=== PATIENT | female | born 1985 | race Hispanic/Latino ===

== ENCOUNTER 2019-06-12 22:44 | Emergency (ER) | payer OTHER, SELFPAY ==
[2019-06-12 22:50] VITALS: BP 142/77; PULSE 89; RESP 18; O2SAT 96
--- NOTE | 2019-06-12 23:01 | ED_ITS ---
HPI - GI Bleed General Chief complaint: GI Bleed Stated complaint: Extremely bright red stool Time Seen by Provider: 06/12/19 22:50 Source: patient Mode of arrival: Ambulatory Limitations: no limitations History of Present Illness HPI Narrative: Otherwise healthy 34-year-old female here for evaluation of 2 episodes of her red blood per rectum. She states that prior to these 2 episodes she has not had any GI issues. She is not having abdominal pain. No vomiting. Has had her gallbladder removed but no other abdominal surgeries. She states that head is not painful for her to go to the bathroom. No urinary symptoms. No vaginal bleeding. Back in 2016 she did have a colonoscopy which she reports was unremarkable. This is due to having chronic abdominal pain that time. She states that has since resolved. Has not done anything for her current symptoms prior to arrival. Related Data Home Medications Medication Instructions Recorded Confirmed levothyroxine [Synthroid] #0 01/04/16 Previous Rx's Medication Instructions Recorded cyclobenzaprine 5 mg PO Q8HP PRN #10 tab 01/04/16 ibuprofen 800 mg PO TIDP PRN #30 tab 01/04/16 Allergies Allergy/AdvReac Type Severity Reaction Status Date / Time DARVOCET Allergy Severe ANAPHYLAXIS Uncoded 05/20/17 12:31 From PERCOCET Allergy Severe ANAPHYLAXIS Uncoded 05/20/17 12:31 From VICODIN Allergy Severe ANAPHYLAXIS Uncoded 05/20/17 12:31 IODINE Allergy Severe IV LIP, Uncoded 05/20/17 12:31 EYE SWELLING, THROAT SWELLS AVOCADOS Allergy Unknown ANAPHYLAXIS Uncoded 05/20/17 12:31 COCONUT Allergy Unknown ANAPHYLAXIS Uncoded 05/20/17 12:31 CODEINE Allergy Unknown RASH Uncoded 05/20/17 12:31 TRAMADOL Allergy Unknown URTICARIA Uncoded 05/20/17 12:31 Review of Systems Constitutional Constitutional: Denies fever(s) Cardiovascular Cardiovascular: Denies chest pain and Denies dyspnea Respiratory Respiratory: Denies dyspnea Gastrointestinal Gastrointestinal: Denies abdominal pain and Denies vomiting Comments: Bright red blood per rectum Genitourinary Genitourinary: Denies dysuria and Denies vaginal discharge Musculoskeletal Musculoskeletal: Denies myalgias and Denies arthralgias Integumentary/Breasts Skin/Breast: Denies lesions and Denies rash Neurologic Neurologic: Denies behavioral changes Psychiatric Psychiatric: Denies behavioral changes Hematologic/Lymphatic Hematologic/Lymphatic: Denies easy bleeding and Denies easy bruising Patient History Medical History Cervical strain, acute (Inactive) Closed head injury (Inactive) Social History Smoking Status: Never smoker Smoking Status: Never smoker Exam Initial Vital Signs Initial Vital Signs: Vital Signs Pulse Rate 89 06/12/19 22:50 Respiratory Rate 18 06/12/19 22:50 Blood Pressure 142/77 H 06/12/19 22:50 Pulse Oximetry 96 06/12/19 22:50 Const General: cooperative, comfortable and well developed Limitations: mental status not altered HENMT Head: normal to inspection and normocephalic Resp Effort & Inspection: normal respiratory effort Cardio Rate: regular rate GI Inspection: non-distended Palpation: soft, No firm and No tender Rectal Exam: visual inspection normal, normal sphincter tone, No fissure, heme negative stool, No hemorrhoids and No laceration Skin Lesions: no lesions Rashes: no rashes Neuro General: alert, awake and oriented x3 Cognition: normal cognition Speech: speech normal Course Orders Ordered: ED Orders 06/12/19 23:06 Complete Blood Count AUTO DIFF Stat Test Serum,Qual Stat Vital Signs Vital signs: Vital Signs - 8 hr 06/12/19 22:50 06/12/19 23:49 Pulse Rate 89 80 Respiratory Rate 18 15 Blood Pressure 142/77 H 137/64 Pulse Oximetry 96 99 MDM - GI Bleed Lab Data Attestation: I reviewed the patient's lab results. Result diagrams: 06/12/19 23:06 Labs: Lab Results 06/12/19 06/12/19 Range/Units 23:06 23:06 WBC 10.8 (4.5-11.0) X10^3/uL RBC 4.24 (4.0-5.2) X10^6/uL Hgb 11.7 L (12.0-16.0) g/dL Hct 34.8 L (36-46) % MCV 82.2 (80-100) fL MCH 27.7 (26-34) PG MCHC 33.7 (30-36) % RDW 14.2 (11.6-14.8) % Plt Count 267 (150-400) X10^3/uL Neut % (Auto) 52.2 (50-75) % Lymph % (Auto) 39.5 (25-40) % [place] % (Auto) 6.5 (3-14) % Eos % (Auto) 1.0 L (2-4) % Baso % (Auto) 0.8 (0-2) % Neut # (Auto) 5600 (2758-7733) /uL Lymph # (Auto) 4200 (4577-1073) /uL [place] # (Auto) 700 (0-900) /uL Eos # (Auto) 100 (0-450) /uL Baso # (Auto) 100 (0-100) /uL Serum , Qual Negative (Negative) MDM Narrative Medical decision making narrative: Patient was heme occult negative. No hemorrhoids felt on the exam. Not having any abdominal pain. Labs unremarkable. Vital signs unremarkable. I feel we could hold on further workup for now. Feel patient be safely discharged home with follow-up with her primary provider to discuss further workup. She was given return precautions and follow-up instructions. She expressed understanding and agreement. Discharge Plan Departure Patient Disposition: Home Clinical Impression: BRBPR (bright red blood per rectum) Discharge Date/Time: 06/12/19 23:50 Instructions: DI for Rectal Bleeding Activity Restrictions/Additional Instructions: I do recommend you contact your primary provider for follow-up. You can discuss with him/her the indications for referral to see GI or General surgery to potentially discuss another colonoscopy. Return to the emergency department for any new or worsening symptoms Prescriptions: No Action levothyroxine [Synthroid] 25 MCG tablet Qty: 0 RF: 0 ibuprofen 800 MG tablet 800 mg PO TIDP PRNQty: 30 RF: 0 cyclobenzaprine 5 MG tablet 5 mg PO Q8HP PRNQty: 10 RF: 0 Referrals: Jonna Mora MD [Primary Care Provider] -
[2019-06-12 23:18] LABS: Add Manual Diff / Slide Review NO; Basophils Absolute Auto 100 /uL (0-100); Basophils Percent Auto 0.8 % (0-2); Eosinophils Absolute Auto 100 /uL (0-450); Hematocrit 34.8 % (36-46); Hemoglobin 11.7 g/dL (12.0-16.0); Lymphocytes Absolute Auto 4200 /uL (1100-4500); Lymphocytes Percent Auto 39.5 % (25-40); Mean Corpuscular HGB Conc 33.7 % (30-36); Mean Corpuscular Hemoglobin 27.7 PG (26-34); Mean Corpuscular Volume 82.2 fL (80-100); Monocytes Absolute Auto 700 /uL (0-900); Monocytes Percent Auto 6.5 % (3-14); Neutrophils Absolute Auto 5600 /uL (1500-7000); Neutrophils Percent Auto 52.2 % (50-75); Platelet Count 267 X10^3/uL (150-400); Red Blood Cell Count 4.24 X10^6/uL (4.0-5.2); Red Cell Distribution Width 14.2 % (11.6-14.8); White Blood Cell Count 10.8 X10^3/uL (4.5-11.0)
[2019-06-12 23:31] LABS: Pregnancy Test Serum,Qual Negative (Negative)
[2019-06-12 23:49] VITALS: BP 137/64; PULSE 80; RESP 15; O2SAT 99
== END 2019-06-12 23:50 | disposition home or self-care (01) ==
PROVIDERS: Emergency Provider Emergency Medicine
DX: K62.5 Hemorrhage of anus and rectum (principal)
CPT/HCPCS: 36415; 84703; 85025; 99281; 99283

== ENCOUNTER 2021-01-05 20:54 | Emergency (ER) | payer OTHER, SELFPAY ==
[2021-01-05] VITALS (14 sets, daily range): BP systolic 116–158; BP diastolic 66–97; PULSE 94–117; RESP 16–26; TEMP 36.9; O2SAT 95–98; BMI 42.4
--- NOTE | 2021-01-05 21:01 | DI.RAD.S_ITS ---
PROCEDURE: XR CHEST 1V INDICATIONS: SOB, tachycardia TECHNIQUE: One view of the chest was acquired. COMPARISON: None. FINDINGS: Surgical changes and devices: None. Lungs and pleura: Lungs are clear. No pleural effusions or pneumothorax. Mediastinum: Mediastinal contours appear normal. Heart size is normal. Bones and chest wall: No suspicious bony lesions. Overlying soft tissues appear unremarkable. IMPRESSION: No acute cardiopulmonary abnormality. Dictated by: Naun Mcnulty M.D. on 01/05/2021 at 21:36 Approved by: Naun Mcnulty M.D. on 01/05/2021 at 21:38
[2021-01-05] MEDS: methylPREDNISolone 125 MG/2 ML VIAL IV (21:26)
[2021-01-05] MEDS: FAMOTIDINE 20 MG/2 ML VIAL IV (21:27)
[2021-01-05] MEDS: diphenhydrAMINE 50 MG/ML VIAL 25 MG IV (21:27)
[2021-01-05] MEDS: SODIUM CHLORIDE 0.9% 1,000 ML 1000 ML IV (21:27)
[2021-01-05 21:33] LABS: Add Manual Diff / Slide Review NO; Basophils Absolute Auto 0 /uL (0-100); Basophils Percent Auto 0.4 % (0-2); Eosinophils Absolute Auto 0 /uL (0-450); Eosinophils Percent Auto 0.1 % (2-4); Hematocrit 35.9 % (36-46); Hemoglobin 12.1 g/dL (12.0-16.0); Lymphocytes Absolute Auto 800 /uL (1100-4500); Lymphocytes Percent Auto 8.5 % (25-40); Mean Corpuscular HGB Conc 33.7 % (30-36); Mean Corpuscular Hemoglobin 27.5 PG (26-34); Mean Corpuscular Volume 81.5 fL (80-100); Monocytes Absolute Auto 0 /uL (0-900); Monocytes Percent Auto 0.4 % (3-14); Neutrophils Absolute Auto 8700 /uL (1500-7000); Neutrophils Percent Auto 90.6 % (50-75); Platelet Count 264 X10^3/uL (150-400); Red Cell Distribution Width 14.1 % (11.6-14.8); White Blood Cell Count 9.6 X10^3/uL (4.5-11.0)
[2021-01-05 21:38] LABS: COVID19 -Nasal RAPID Negative (Negative)
[2021-01-05 21:42] LABS: Alanine Aminotransferase 20 IU/L (<35); Albumin 4.3 g/dL (3.5-5.0); Albumin Globulin Ratio 1.1 (1.0-2.8); Alkaline Phosphatase 93 U/L (38-126); Aspartate Aminotransferase 30 IU/L (14-36); BUN Creatinine Ratio 10.9 (6-22); Bilirubin Total 0.2 mg/dL (0.2-1.3); Blood Urea Nitrogen 6 mg/dL (7-17); Calcium 9.5 mg/dL (8.4-10.2); Carbon Dioxide 23 mmol/L (22-32); Chloride 104 mmol/L (98-107); Creatine Kinase 52 U/L (30-135); Estimated Glomerular Filt Rate > 60.0 mL/min (>60); Glucose 216 mg/dL (70-100); HEMOLYSIS < 15 (0-50); Potassium 3.8 mmol/L (3.4-5.1); Sodium 138 mmol/L (137-145); Total Protein 8.3 g/dL (6.3-8.2)
[2021-01-05 21:46] LABS: D Dimer < 200 ng/mL (<230)
[2021-01-05 21:54] LABS: NT-proBNP (BNP-Adult 18+) < 11 pg/mL (<125); Troponin I < 0.012 ng/mL (0.01-0.034)
--- NOTE | 2021-01-05 23:32 | ED.ALLEREA ---
HPI - Allergic Reaction General Chief complaint: Allergic Reaction Stated complaint: reaction to infusion Time Seen by Provider: 01/05/21 20:54 History of Present Illness HPI narrative: 35-year-old female with history of hypothyroid and psoriatic arthritis presents with dizziness, racing heart and shortness of breath that started soon after completing her 2nd round of Remicade infusion today. She received her 1st infusion a few weeks ago at [facility] and had no issues. Today she had her 2nd infusion of Remicade and though she was pretreated with Benadryl and famotidine she developed the above-stated symptoms after completion of the infusion. She contacted the facility and was instructed to present to the closest emergency department, which was our facility as she was in the process of driving home to [place]. She denies any chest pain and has no nausea, vomiting or diarrhea. Her dizziness seems to worsen with standing and improved with rest. She denies any dysuria, frequency or urgency. Related Data Home Medications Medication Instructions Recorded Confirmed levothyroxine 25 mcg tablet #0 01/04/16 (Synthroid) Previous Rx's Medication Instructions Recorded cyclobenzaprine 5 mg tablet 5 mg PO Q8HP PRN #10 tab 01/04/16 ibuprofen 800 mg tablet 800 mg PO TIDP PRN #30 tab 01/04/16 Allergies Allergy/AdvReac Type Severity Reaction Status Date / Time DARVOCET Allergy Severe ANAPHYLAXIS Uncoded 05/20/17 12:31 From PERCOCET Allergy Severe ANAPHYLAXIS Uncoded 05/20/17 12:31 From VICODIN Allergy Severe ANAPHYLAXIS Uncoded 05/20/17 12:31 IODINE Allergy Severe IV LIP, Uncoded 05/20/17 12:31 EYE SWELLING, THROAT SWELLS AVOCADOS Allergy Unknown ANAPHYLAXIS Uncoded 05/20/17 12:31 COCONUT Allergy Unknown ANAPHYLAXIS Uncoded 05/20/17 12:31 CODEINE Allergy Unknown RASH Uncoded 05/20/17 12:31 TRAMADOL Allergy Unknown URTICARIA Uncoded 05/20/17 12:31 Review of Systems Review of Systems Narrative: GENERAL: See HPI HEENT: Denies sinus pain, ear pain, sore throat, difficulty swallowing, dizziness. RESPIRATORY: See HPI CARDIOVASCULAR: See HPI GASTROINTESTINAL: Denies nausea, vomiting, abdominal pain, diarrhea, constipation, melena. : Denies dysuria, frequency, incontinence, hematuria, urinary retention. MUSCULOSKELETAL: denies weakness, joint pain, or bony pain SKIN: Denies rash, skin lesions, or other NEUROLOGIC: Denies weakness, headache, numbness, change in speech, confusion, seizures, incoordination. PSYCHIATRIC: No concerning psychosocial issues. 12 point review of systems is negative except for those stated above Patient History Medical History (Updated 01/06/21 @ 00:20 by Noah Paredes DO) Cervical strain, acute Closed head injury Social History Smoking Status: Never smoker Smoking Status: Never smoker Exam Narrative Exam Narrative: GENERAL: [35] year old patient appears stated age. Well-developed patient, in mild distress. HEAD: Atraumatic. Normocephalic. EYES: Pupils equal round and reactive. Extraocular motions intact. No scleral icterus. No injection or drainage. ENT: Nose without bleeding, purulent drainage. Throat without erythema, tonsillar hypertrophy or exudate. Airway patent. NECK: Trachea midline. Non tender CARDIOVASCULAR: Regular rate and rhythm without murmurs, gallops, or rubs. RESPIRATORY: Clear to auscultation. Breath sounds equal bilaterally. No wheezes, rales, or rhonchi. GASTROINTESTINAL: Abdomen soft, non-tender, nondistended. EXTREMITIES: No edema or joint tenderness. BACK: Nontender without deformity or crepitance. No flank tenderness. NEURO: AOx3. SKIN: No rash or erythema of visible areas Initial Vital Signs Initial Vital Signs: Vital Signs Temperature 98.4 F 01/05/21 21:06 Pulse Rate 105 H 01/05/21 21:06 Respiratory Rate 16 01/05/21 21:06 Blood Pressure 148/78 H 01/05/21 21:06 Pulse Oximetry 97 01/05/21 21:06 Course Orders Ordered: ED Orders 01/05/21 21:01 XR chest 1V Stat 01/05/21 21:03 EKG-12 Lead Routine 01/05/21 21:15 COVID19 -Nasal swab/Pre-Proc Stat 01/05/21 21:20 Complete Blood Count AUTO DIFF Stat Comprehensive Metabolic Panel Stat D Dimer Stat NT-proBNP (BNP-Adult 18+) Stat Troponin & CK Cardiac Panel Stat Discontinued Medications Diphenhydramine HCl (Diphenhydramine 50 Mg/Ml Vial) 25 mg IV NOW ONE Stop: 01/05/21 21:01 Last Admin: 01/05/21 21:27 Dose: 25 mg Documented by: JAMES Famotidine (Famotidine 20 Mg/2 Ml Vial) 20 mg IV NOW MARISOL Last Admin: 01/05/21 21:27 Dose: 20 mg Documented by: JAMES Sodium Chloride (Normal Saline 0.9%) 1,000 mls @ 1,000 mls/hr IV BOLUS ONE Stop: 01/05/21 21:59 Last Infusion: 01/05/21 22:57 Dose: 0 mls/hr Documented by: Admin: 01/05/21 21:27 Dose: 1,000 mls/hr Documented by: JAMES Meclizine HCl (Meclizine Hcl 12.5 Mg Tablet) 25 mg PO NOW ONE Stop: 01/05/21 23:33 Last Admin: 01/05/21 23:38 Dose: 25 mg Documented by: JAMES Methylprednisolone (Methylprednisolone 125 Mg/2 Ml Vial) 125 mg IV NOW ONE Stop: 01/05/21 21:01 Last Admin: 01/05/21 21:26 Dose: 125 mg Documented by: JAMES Vital Signs Vital signs: Vital Signs - 8 hr 01/05/21 21:06 01/05/21 21:16 01/05/21 21:30 Temperature 98.4 F Pulse Rate 105 H 104 H 103 H Pulse Rate [Orthostatic Lying] Pulse Rate [Orthostatic Sitting] Pulse Rate [Orthostatic Standing] Respiratory Rate 16 20 24 Blood Pressure 148/78 H Blood Pressure [Orthostatic Lying] Blood Pressure [Orthostatic Sitting] Blood Pressure [Orthostatic Standing] Pulse Oximetry 97 97 98 01/05/21 21:38 01/05/21 22:00 01/05/21 22:30 Temperature Pulse Rate 101 H 100 H 98 H Pulse Rate [Orthostatic Lying] Pulse Rate [Orthostatic Sitting] Pulse Rate [Orthostatic Standing] Respiratory Rate 22 23 24 Blood Pressure 152/97 H 116/67 128/76 Blood Pressure [Orthostatic Lying] Blood Pressure [Orthostatic Sitting] Blood Pressure [Orthostatic Standing] Pulse Oximetry 98 97 96 01/05/21 23:00 01/05/21 23:17 01/05/21 23:18 Temperature Pulse Rate 95 H 96 H 95 H Pulse Rate [Orthostatic Lying] Pulse Rate [Orthostatic Sitting] Pulse Rate [Orthostatic Standing] Respiratory Rate 26 H 26 H 23 Blood Pressure 117/66 131/74 129/71 Blood Pressure [Orthostatic Lying] Blood Pressure [Orthostatic Sitting] Blood Pressure [Orthostatic Standing] Pulse Oximetry 95 96 97 01/05/21 23:21 01/05/21 23:22 01/05/21 23:30 Temperature Pulse Rate 98 H 109 H 98 H Pulse Rate [Orthostatic Lying] Pulse Rate [Orthostatic Sitting] Pulse Rate [Orthostatic Standing] Respiratory Rate 22 23 17 Blood Pressure 158/85 H 153/87 H Blood Pressure [Orthostatic Lying] Blood Pressure [Orthostatic Sitting] Blood Pressure [Orthostatic Standing] Pulse Oximetry 95 95 97 01/05/21 23:33 01/05/21 23:34 01/06/21 00:00 Temperature Pulse Rate 112 H 94 H Pulse Rate [Orthostatic Lying] 94 H Pulse Rate [Orthostatic Sitting] 117 H Pulse Rate [Orthostatic Standing] 108 H Respiratory Rate 23 Blood Pressure Blood Pressure [Orthostatic Lying] 129/71 Blood Pressure [Orthostatic Sitting] 158/85 H Blood Pressure [Orthostatic Standing] 153/87 H Pulse Oximetry 98 95 MDM - Allergic Reaction Lab Data Result diagrams: 01/05/21 21:20 01/05/21 21:20 Labs: Lab Results 01/05/21 01/05/21 01/05/21 Range/Units 21:15 21:20 21:20 WBC 9.6 (4.5-11.0) X10^3/uL RBC 4.40 (4.0-5.2) X10^6/uL Hgb 12.1 (12.0-16.0) g/dL Hct 35.9 L (36-46) % MCV 81.5 (80-100) fL MCH 27.5 (26-34) PG MCHC 33.7 (30-36) % RDW 14.1 (11.6-14.8) % Plt Count 264 (150-400) X10^3/uL Neut % (Auto) 90.6 H (50-75) % Lymph % (Auto) 8.5 L (25-40) % [place] % (Auto) 0.4 L (3-14) % Eos % (Auto) 0.1 L (2-4) % Baso % (Auto) 0.4 (0-2) % Neut # (Auto) 8700 H (8003-9030) /uL Lymph # (Auto) 800 L (1825-5979) /uL [place] # (Auto) 0 (0-900) /uL Eos # (Auto) 0 (0-450) /uL Baso # (Auto) 0 (0-100) /uL D-Dimer < 200 (<230) ng/mL Sodium (137-145) mmol/L Potassium (3.4-5.1) mmol/L Chloride (98-107) mmol/L Carbon Dioxide (22-32) mmol/L BUN (7-17) mg/dL Creatinine (0.52-1.04) mg/dL Estimated GFR (>60) mL/min BUN/Creatinine Ratio (6-22) Glucose (70-100) mg/dL Calcium (8.4-10.2) mg/dL Total Bilirubin (0.2-1.3) mg/dL AST (14-36) IU/L ALT (<35) IU/L Alkaline Phosphatase (38-126) U/L Total Creatine Kinase (30-135) U/L CK-MB (CK-2) CK-MB (CK-2) Rel Index Troponin I (0.01-0.034) ng/mL NT-Pro-B Natriuret Pep (<125) pg/mL Total Protein (6.3-8.2) g/dL Albumin (3.5-5.0) g/dL Globulin (1.7-4.1) g/dL Albumin/Globulin Ratio (1.0-2.8) SARS-CoV-2 (PCR) Negative (Negative) 01/05/21 Range/Units 21:20 WBC (4.5-11.0) X10^3/uL RBC (4.0-5.2) X10^6/uL Hgb (12.0-16.0) g/dL Hct (36-46) % MCV (80-100) fL MCH (26-34) PG MCHC (30-36) % RDW (11.6-14.8) % Plt Count (150-400) X10^3/uL Neut % (Auto) (50-75) % Lymph % (Auto) (25-40) % [place] % (Auto) (3-14) % Eos % (Auto) (2-4) % Baso % (Auto) (0-2) % Neut # (Auto) (0363-9668) /uL Lymph # (Auto) (4240-3994) /uL [place] # (Auto) (0-900) /uL Eos # (Auto) (0-450) /uL Baso # (Auto) (0-100) /uL D-Dimer (<230) ng/mL Sodium 138 (137-145) mmol/L Potassium 3.8 (3.4-5.1) mmol/L Chloride 104 (98-107) mmol/L Carbon Dioxide 23 (22-32) mmol/L BUN 6 L (7-17) mg/dL Creatinine 0.55 (0.52-1.04) mg/dL Estimated GFR > 60.0 (>60) mL/min BUN/Creatinine Ratio 10.9 (6-22) Glucose 216 H (70-100) mg/dL Calcium 9.5 (8.4-10.2) mg/dL Total Bilirubin 0.2 (0.2-1.3) mg/dL AST 30 (14-36) IU/L ALT 20 (<35) IU/L Alkaline Phosphatase 93 (38-126) U/L Total Creatine Kinase 52 (30-135) U/L CK-MB (CK-2) TNP CK-MB (CK-2) Rel Index TNP Troponin I < 0.012 (0.01-0.034) ng/mL NT-Pro-B Natriuret Pep < 11 (<125) pg/mL Total Protein 8.3 H (6.3-8.2) g/dL Albumin 4.3 (3.5-5.0) g/dL Globulin 4.0 (1.7-4.1) g/dL Albumin/Globulin Ratio 1.1 (1.0-2.8) SARS-CoV-2 (PCR) (Negative) MDM Narrative Medical decision making narrative: Patient with above-stated therapies soon after receiving infusion of Remicade. Symptoms dramatically improved with above-stated therapies over duration of her visit. Vital signs tremendously improved, patient able to ambulate through the department without difficulty. And physical exam are very reassuring. Labs are reassuring, other diagnoses such as renal failure, electrolyte abnormality, cardiac ischemia, pulmonary embolism considered but thought unlikely given history, physical, EKGs, labs and other. Extensive return precautions given, questions answered to her apparent satisfaction Discharge Plan Departure Patient Disposition: Home Clinical Impression: Adverse reaction to drug Instructions: DI for Adverse Drug Reaction -- Allergic Activity Restrictions/Additional Instructions: *You have been diagnosed with [various symptoms likely related to adverse reaction to Remicade. Your history, physical exam and labs are very reassuring *What to do: *Please continue to take your regular medications as directed. [ ] New medication prescriptions sent to your pharmacy: [ ] [ ] New medication written as a paper prescription [x ] No new medications given *Please follow up with your primary care provider in 2-3 days, call for an appointment. Let them know you were seen in the Emergency Department and that we ask that you be seen in follow up. We will electronically transmit a record of today's note if your PCP is in our system *If you do not have a primary care provider please contact the [facility] Resource line at [phone]. They will ask some questions about your medical history and help get you set up with a doctor in the community. *Return to Emergency Department if you should have any new, worsening or concerning symptoms, such as [fever greater than 101 F, shaking chills, worsening pain, persistent vomiting or other bothersome symptoms] Prescriptions: No Action levothyroxine [Synthroid] 25 MCG tablet Qty: 0 0RF ibuprofen 800 MG tablet 800 mg PO TIDP PRNQty: 30 0RF cyclobenzaprine 5 MG tablet 5 mg PO Q8HP PRNQty: 10 0RF Referrals: Jonna Mora MD [Primary Care Provider] -
[2021-01-05] MEDS: MECLIZINE HCL 12.5 MG TABLET 25 MG PO (23:38)
[2021-01-06] VITALS: PULSE 94; RESP 23; O2SAT 95
--- NOTE | 2021-01-06 00:20 | PC.NURSE ---
The patient ambulated 50 ft and stated that she did not feel better but did not feel worse and felt like she was ready to go home.
== END 2021-01-06 00:36 | disposition home or self-care (01) ==
PROVIDERS: Emergency Provider Emergency Medicine
DX: R06.02 Shortness of breath (principal); T39.8X5A Adverse effect of other nonopioid analgesics and antipyretics, not elsewhere classified, initial encounter; R42 Dizziness and giddiness; Z20.822 Contact with and (suspected) exposure to COVID-19
CPT/HCPCS: 36415; 71045; 80053; 82550; 83880; 84484; 85025; 85379; 87635; 93005; 96361; 96374; 96375; 99284; C9803; J1200; J2930

== ENCOUNTER → 2021-06-05 09:12 | Outpatient (CLI) | payer OTHER, SELFPAY ==
[2021-06-05 14:15] LABS: COVID19 -Nasal RAPID Negative (Negative)
== END ==
PROVIDERS: Visit Provider Family Medicine Sleep Medicine
DX: Z20.822 Contact with and (suspected) exposure to COVID-19 (principal)
CPT/HCPCS: 87635; C9803

== ENCOUNTER 2021-06-06 09:49 | Day surgery (SDC) | payer OTHER, SELFPAY ==
[2021-06-06] VITALS (7 sets, daily range): BP systolic 125–143; BP diastolic 63–88; PULSE 72–95; RESP 10–17; TEMP 36–36.6; O2SAT 97–100; BMI 49.1
[2021-06-06] MEDS: LACTATED RINGERS 1,000 ML 42 ML IV ×2 (11:01→14:00)
--- NOTE | 2021-06-06 12:10 | P.OP_ITS ---
Operative Date/Time/Diagnoses Date of procedure: 06/06/21 Time of procedure: 13:58 Pre-op diagnosis: Chronic tonsillitis, tonsil stones, halitosis Post-op diagnosis: same (Mild adenoid hypertrophy) Procedure & Clinicians Procedure: Tonsillectomy and Adenoidectomy Same procedure as scheduled: Yes Indications: 36-year-old female with above diagnoses incompletely managed with medical therapy presents for the above procedures. Following discussion of the material risks benefits complications and alternatives, she elected to proceed. Surgeon: Tristin Constantino Click Yes if Unassisted: Yes Anesthesia Type: General and Local Operative Notes Findings: Intact palate, single uvula, 2 to 3+ tonsils with stones, 2+ adenoids Estimated Blood Loss (mL): 10 Procedure in detail: Following identification and confirmation of consent the patient was brought to the operating room suite and placed in the supine position. General endotr acheal anesthesia was administered. A head wrap, shoulder roll, and mouth gag were placed and a red rubber catheter was inserted through the nostril and out the mouth to retract the soft palate. Partially obstructive adenoid tissue was ablated with suction electrocautery on a setting of 40, without injury to the eustachian tube orifices or choana. The left tonsil was retracted medially and suction electrocautery on a setting of 30 was used to dissect the tonsil in a subcapsular plane, followed by hemostasis with the same. This process was repeated on the right side with identical findings. The tonsillar fossae were superficially infiltrated bilaterally with a 1:1 mixture of 1% lidocaine 1 100,000 epinephrine and 0.5% Marcaine. Mouth gag and rubber catheter were removed and the patient was extubated in the operating room and taken to the recovery room in stable condition without known complication. Complications: none Post-operative Condition: stable Disposition: same day surgery Plan for aftercare: Push fluids, alternate Tylenol and Advil every 3 hours for baseline pain control, oxycodone for breakthrough pain. Soft diet 2 full weeks, no heavy lifting or straining 2 weeks.
--- NOTE | 2021-06-06 12:10 | PM.PREOP ---
Pre-operative Note Interval Note History & Physical reviewed/Exam performed by Physician: Yes Changes to H&P: No
--- NOTE | 2021-06-06 13:11 | PM.HP.1 ---
History of Present Illness History of Present Illness Date Patient Seen: 06/06/21 Time Patient Seen: 13:11 Chief complaint: Chronic tonsillitis Narrative: 36-year-old female with psoriatic arthritis and chronic tonsillitis, incompletely managed with medical therapy, including daily tonsil stones and halitosis, presents for tonsillectomy and possible adenoidectomy as an outpatient. Last seen in clinic 02/28/2021, no interval health changes, wishes to proceed. Specifically she has taken oxycodone in the past with some pruritus but no hives or airway issues, wishes to try again if necessary beyond Tylenol and Advil. Patient History Medical History Asthma Cervical strain, acute Closed head injury COVID Psoriatic arthritis Surgical History H/O lumpectomy H/O wrist surgery Hx laparoscopic cholecystectomy Previous section Family & Social History Social History: household members spouse Tobacco & Substance use: Smoking Status Never smoker alcohol intake frequency holiday/special occasion Substance Use Type does not use Meds Home Medications and Allergies Home Medications Medication Instructions Recorded Confirmed Type albuterol 90 mcg/actuation aerosol See Rx Instructions .ROUTE .COMPLEX 06/06/21 06/06/21 History inhaler infliximab See Rx Instructions .ROUTE .COMPLEX 06/06/21 06/06/21 History naproxen See Rx Instructions .ROUTE .COMPLEX 06/06/21 06/06/21 History Allergies Allergy/AdvReac Type Severity Reaction Status Date / Time DARVOCET Allergy Severe ANAPHYLAXIS Uncoded 05/20/17 12:31 From PERCOCET Allergy Severe ANAPHYLAXIS Uncoded 05/20/17 12:31 From VICODIN Allergy Severe ANAPHYLAXIS Uncoded 05/20/17 12:31 IODINE Allergy Severe IV LIP, Uncoded 05/20/17 12:31 EYE SWELLING, THROAT SWELLS AVOCADOS Allergy Unknown ANAPHYLAXIS Uncoded 05/20/17 12:31 COCONUT Allergy Unknown ANAPHYLAXIS Uncoded 05/20/17 12:31 CODEINE Allergy Unknown RASH Uncoded 05/20/17 12:31 TRAMADOL Allergy Unknown URTICARIA Uncoded 05/20/17 12:31 Review of Systems Review of Systems Narrative: Negative except as listed in the HPI Exam Vital Signs (past 8 hours): - 06/06/21 10:41 Temperature 96.8 F L Pulse Rate 83 Respiratory Rate 16 Blood Pressure 141/88 H Pulse Oximetry 99 Oxygen Delivery Method Room Air Narrative Exam Narrative: Well-developed overweight female in no acute distress. Heart regular rate and rhythm without murmur, lungs clear to auscultation bilaterally Assessment & Plan Assessment & Plan narrative: Assessment: Chronic tonsillitis, tonsil stones, and halitosis Plan: Following discussion of the material risks benefits complications and alternatives, she elected to proceed with tonsillectomy and possible adenoidectomy as outpatient. Time Spent With Patient Critical Care time: I spent a total of [] minutes of critical care time on this patient's care today; this time is exclusive of procedural time.
[2021-06-06] MEDS: BUPIVACAINE 0.5% (PF) VIAL 30 ML INJ (13:38)
[2021-06-06] MEDS: LIDOCAINE 1% W/EPI 20 ML INJ (13:39)
--- NOTE | 2021-06-06 13:40 | SUR.OPER ---
Supine on padded OR bed, head on gel donut, arms secured on padded arm boards at <90 degrees abduction, legs uncrossed, safety belt at thigh.
[2021-06-06] MEDS: ONDANSETRON 4 MG/2 ML INJ IV (14:11)
[2021-06-06] MEDS: fentaNYL 100 MCG/2 ML INJ IV ×2 (14:12→14:22)
[2021-06-06] MEDS: ALBUTEROL 2.5 MG/3 ML NEB (ADULT) INH (14:22)
--- NOTE | 2021-06-06 14:37 | SUR.PHASEI ---
Patient resting easier after breathing treatment and IV medication.
== END 2021-06-06 15:20 | disposition home or self-care (01) ==
PROVIDERS: PCP Student in an Organized Health Care Education/Training Program; Referring Provider Otolaryngology; Visit Provider Otolaryngology
PROC: (CPT 42821; principal; 2021-06-06 11:15)
DX: J35.01 Chronic tonsillitis (principal); J35.8 Other chronic diseases of tonsils and adenoids; J45.909 Unspecified asthma, uncomplicated
CPT/HCPCS: 42821; 81025; J1100; J2405; J2704; J3010; J7613